=== PATIENT | male | born 1980 | race Two or more races ===

== ENCOUNTER 2020-02-21 15:25 | Emergency (ER) | payer OTHER ==
[~2020-02-21] VITALS: Ht 182.9 cm; Wt 90.7 kg
[2020-02-21] MEDS ORDERED: ACETAMINOPHEN-1 EAC1 ORAL (15:30)
[2020-02-21] MEDS ORDERED: NAPROXEN500 M1 ORAL (15:30)
--- NOTE | 2020-02-21 15:31 | Emergency Room Report ---
History of Present Illness General Chief Complaint: To Be Triaged Source: Patient Present Illness HPI Patient is a [id number] 39-year-old male who presents status post mechanical trip and fall yesterday. He has a video of him following which I have reviewed. Patient slipped, rolled his right ankle, and braced his fall by putting his bilateral wrist behind him. Denies hyperextension of elbows or knees. He was able to finish out the rest of the day of work. Denies head trauma, headache, weakness, neck pain, loss of consciousness, visual blurring, numbness , paresthesia, or any other symptoms. Of note, patient states he went to an urgent care this morning as he was leaving , a disgruntled patient. Slammed the door onto his right hand. He is complaining of pain on the lateral aspect of his right hand at digits 3, 4 , 5. He is also complaining of pain at the base of the thumb on the left wrist. He is complaining of pain to the lateral aspect of the right ankle and the base of the pinky toe. He is able to ambulate. Also complains of paraspinal right low back pain.Denies urinary retention, bowel bladder incontinence, fever, chills, history of IV drug use. Denies blood thinner use. Hand dominance: Right hand Occupation: [employer] The patient's symptoms were gradual onset, severity was moderate, duration since 1 day. Quality: aching Past medical history: HTN Past surgical history: back surgery Smoking: Denies Alcohol use: Denies Drug use: Denies Review of systems: CONST: No fevers or chills, No night sweats PULMONARY: No productive cough, No shortness of breath CARDIAC: No chest pain, No palpitations GI: No vomiting, No diarrhea , No melena_or_BRBPR : No dysuria, No hematuria, No discharge NEURO: No new_focal_weakness_or_numbness, No confusion, No vision changes 14 point Review of Systems is otherwise negative except per HPI Physical Exam: GENERAL: Awake_alert_ nontoxic, no acute distress Spo2 98% on RA -normal EYES: Extraocular muscles are intact. Conjunctivae clear. Lids without swelling ENT: External nose and ear normal_in_appearance. Oropharynx clear. Head_ atraumatic, Moist_oral_mucosa NECK: No JVD. No meningismus. No thyromegaly. Supple. Trachea midline RESP: Normal respiratory effort. Symmetric rise. No stridor. Clear_to_ auscultation_No_rales_No_wheezes CARDIAC: Regular rate and regular rhytm. No_significant pedal edema. ABDOMEN: Soft. Nondistended. Nontender_No_rebound_or_guarding. MSK: Normal muscle tone, without rigidity. Extremities without asymmetric deformity or swelling. R wrist no snuffbox TTP; no scissoring of digits. Intact AIN PIN MEDIAN RADIAL ULNAR N. SILT, CR < 2 sec + L wrist snuffbox TTP; no scissoring of digits. Intact AIN PIN MEDIAN RADIAL ULNAR N. SILT, CR < 2 sec Compartments of bilateral hand wrist and forearm are soft and compressible. Midline Lumbar surgery scar is well healed. no cellulilitis or midline TTP or step off. R paraspinal Lumbar hypertonicity FROM C/T/L spine flex/extension Upper extremity exam: Bilateral Elbow: No swelling / effusion appreciated, no significant pain with passive range of motion Wrist: No swelling / effusion appreciated, no significant pain with passive range of motion Lateral epicondyle: no tenderness / swelling / ecchymoses Medial epicondyle: no tenderness / swelling / ecchymoses Radial pulse: 2+ Capillary refill: <3 seconds in all fingers All fingers: full range of motion without any tenderness / swelling / deformity / evidence of infection Scaphoid: + L TTP; NO R snuffbox TTP. Radian / Median / Ulnar nerves: all intact (finger opposition, finger adduction / abduction, thumb dorsiflexion) Sensation intact to light touch: in all fingers Strength 5/5 with: wrist dorsi / volar flexion, hand weather observer, elbow flexion / extension Right ankle/foot exam No swelling / effusion appreciated, No significant pain with passive range of motion Lateral malleolus: no tenderness / swelling / ecchymoses Medial malleolus: no tenderness / swelling / ecchymoses Dorsalis pedis pulse: 2+ Capillary refill: <3 seconds in all toes All toes: full range of motion without any tenderness / swelling / deformity / evidence of infection Base of the fifth metatarsal: no tenderness / swelling / ecchymoses Navicular: no tenderness / swelling / ecchymoses Calcaneus: no tenderness / swelling / ecchymoses Arch of the foot: no tenderness / swelling / ecchymoses Midfoot: no tenderness / swelling / ecchymoses Strength of dorsal / plantar flexion: normal 5/5 SKIN: Warm and dry. No visible cyanosis or pallor NEUROLOGIC: Alert, oriented x3. Motor_and_sensation_grossly_intact. No truncal ataxia. Gait_normal Psych: Normal mood and affect, normal judgment and insight - COORDINATION OF CARE Case was discussed with: Patient Any imaging ordered were interpreted as part of the medical decision making: Medical Decision Making/Plan: Differential diagnosis includes musculoskeletal pain, fracture, dislocation, compartment syndrome, arterial occlusion, nerve damage, among others. Initial pulse ox in triage was entered erroneously. Repeat pulse ox showed SPO2 98%. Patient is not dyspneic or any respiratory distress. He does not complain of any shortness of breath. Distally the patient has capillary refill <2 seconds and strong pulses to RUE/ LUE and RLE/LLE. There is no pallor or pain out of proportion to exam. There is no significant swelling, deformity, or report of significant dislocation that subsequently reduced. No evidence of arterial occlusion or injury. The associated joints have full range of motion without any significant pain or restriction in mobility. No evidence at this time of major ligamentous disruption. Xrays of the R hand shows 4th MCP fx. No scissoring on exam. Compartments are soft. No neurologic deficits. Radial pulse +2/4 BUE. Advised NWB R hand until cleared by ortho. Xray of the L wrist are negative. L wrist had snuffbox TTP so L thumb spica splint applied. Advised NWB L thumb x 1 week until repeat xrays. Xray of the R ankle and foot were negative. AMILCAR wrap applied. Advised WBAT. However, the patient was informed that occult fractures are not always apparent on their first visit and understand to follow up with their regular doctor for a reevaluation within the next 2-3 days, to ensure their symptoms completely resolve. Advised to f/u for repeat xrays within 7-10 days to eval for scaphoid fx. Recommend f/u ortho in 2-3 days. Pt educated if he does not follow up in a timely matter he risks avascular necrosis of scaphoid and therefore lifelong arthritis. He verbalizes his understanding of this Pertinent results reviewed with the patient. I educated the patient on the current treatment plan including the risks, benefits, and alternatives. I also discussed the extent and limitations of the current evaluation. The patient expressed understanding and agreement with plan. I recommended PMD follow-up within 1-2 days. Also advised that the patient return to the Emergency Department as soon as possible if they experience any new, persistent, or worsening symptoms. Patient was advised to not take Tylenol [address]/operate heavy machinery as it is potentially sedating. He verbalizes his understanding of this. Allergies: Coded Allergies: No Known Allergies (Unverified , 02/21/20) Physical Exam Sp02 EP Interpretation: reviewed, normal Procedures Splinting Progress Velcro Left thumb spica splint: splint applied to left thumb Splint applied by tech with direct supervision by me. Reassessed following splint application. Neurovascular intact. Compartments remain soft and compressible. Pt tolerated well without complications. Splint care instructions were discussed. 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 Right ulnar gutter splint: splint applied to right hand Splint applied by tech with direct supervision by me. Reassessed following splint application. Neurovascular intact. Compartments remain soft and compressible. Pt tolerated well without complications. Splint care instructions were discussed. 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 Right ankle Amilcar wrap splint: splint applied to right ankle Splint applied by tech with direct supervision by me. Reassessed following splint application. Neurovascular intact. Compartments remain soft and compressible. Pt tolerated well without complications. Splint care instructions were discussed. Pt to follow up with orthopedics within 1 week to prevent future arthritis and longterm disability. Medical Decision Making Diagnostic Impression: Primary Impression: Fracture of fourth metacarpal bone of right hand Additional Impressions: Contusion of bone Muscle spasm Right ankle pain Right hand pain Wrist pain Other X-Ray Diagnostic Results Other X-Ray Diagnostic Results : PA Scribe Text XRAY Foot Complete R EXAM: XR Right Foot Complete, 3 or More Views Indication: PAIN FINDINGS: Bones/joints: Mild to moderate osteoarthritic changes at the DIP and PIP joints. No acute fracture, dislocation, or destructive process. Soft tissues: No radiopaque foreign body. IMPRESSION: 1. Mild osteoarthritic changes. 2. No acute fracture or dislocation. XRAY Ankle Compl Min 3v R EXAM: XR Right Ankle Complete, 3 or More Views Indication: Pain TECHNIQUE: Frontal, lateral and oblique views of the right ankle. FINDINGS: Bones/joints: Right ankle mortise is preserved. No acute fracture, dislocation, or destructive process. The calcaneus is unremarkable. The talus is unremarkable. Base of the right fifth metatarsal is unremarkable. Soft tissues: Unremarkable. IMPRESSION: No acute fracture, dislocation, or destructive process is noted. XRAY Hand Complete R EXAM: XR Right Hand Complete, 3 or More Views Frontal, lateral and oblique views of the right hand. FINDINGS: Bones/joints: There is suggestion of a fracture at the base of the right fourth metacarpal of indeterminate age. Clinical correlation is advised. No dislocation. Soft tissues: Anatomic alignment is normal. Soft tissues are unremarkable. No additional focal abnormalities noted. No radiopaque foreign body. IMPRESSION: 1. R fourth metacarpal fx, no dislocation, mild STS XRAY [facility] EXAM: XR Lumbosacral Spine, 2 or 3 Views COMPARISON: No previous studies. FINDINGS: Vertebrae: There is grade 1 anterolisthesis of L5 upon S1 vertebral body appeared In particular, the L5 vertebral body is displaced 1 cm anterior to the L5 vertebral body. Alignment of the lumbar spine is unremarkable per Pedicles are unremarkable. Levoscoliosis. No acute fracture. Sacrum/coccyx: Lower thoracic spine and the upper and mid sacrum are unremarkable. Mild osteoarthritic changes about the sacroiliac joints. No acute fracture. Disc spaces: Posterior fusion changes are noted at the L5-S1 level. Intervertebral disc spacer at L5-S1 level. Soft tissues: Unremarkable. Other findings: Orthopedic plate and screws are noted in place per IMPRESSION: 1. Posterior fusion changes at the L5-S1 level. 2. Grade 1 anterolisthesis of L5 upon S1 vertebral body. 3. Intervertebral disc spacer at L5-S1 level. XRAY Wrist Complete R EXAM: XR Right Wrist, 2 Views CLINICAL HISTORY: PAIN TECHNIQUE: Frontal and lateral views of the right wrist. FINDINGS: Bones/joints: Mild osteoarthritic changes are noted. No acute fracture, dislocation, or destructive process is noted. Soft tissues: Soft tissues are unremarkable. No radiopaque foreign body. IMPRESSION: No acute fracture, dislocation, or destructive process. XRAY Wrist Complete L EXAM: XR Left Wrist, 2 Views COMPARISON: None. FINDINGS: Bones/joints: No acute fracture, dislocation, or destructive process. Soft tissues: Soft tissues are unremarkable per No radiopaque foreign body. Other findings: No significant focal abnormalities. IMPRESSION: No acute fracture, dislocation, or destructive process. Disposition: HOME, SELF-CARE Admit Decision Time: 16:00 Condition: Stable Scripts Methocarbamol* (ROBAXIN-750*) 750 Mg Tablet 750 MG PO TID, #21 TAB 0 Refills Prov: Leida Coello D.O. 02/21/20 Acetaminophen With Codeine (T#3) (TYLENOL #3 TAB*) Y Tab 1 TAB ORAL Q4H PRN for For Pain for 7 Days, #20 TAB Prov: Leida Coello D.O. 02/21/20 Naproxen* (NAPROXEN*) 500 Mg Tablet.dr 500 MG ORAL TWICE A DAY for 14 Days, #28 TAB Prov: Leida Coello D.O. 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 There is a questionable fracture of your left wrist. You will need to get repeat x-rays with your primary care doctor of your left wrist to rule out fracture. In the meantime please keep your left thumb spica splint intact. Do not remove or weight-bear to the left upper extremity until cleared by physician. Do not drive or operate heavy machinery while taking Tylenol #3 as it is sedating. Follow-up with your doctor sooner if your condition requires a more timely clinical reevaluation. Return to the emergency department immediately if you feel that your condition is worsening or if you have any new or concerning symptoms. Review your discharge instructions and take any prescriptions given as instructed. Since there is always the possibility of X-ray variance, you should get a copy of the final report of your imaging studies from medical records in 2-3 days in case of discrepancy, or you can have your regular doctor obtain these from the hospital. Hairline fractures or occult fractures can also be missed on the first visit so if you are having persistent pain and persistent decreased function after 1 week you should return for repeat evaluation and potentially repeat imaging. Leida Coello D.O. Feb 21, 2020 15:31
[2020-02-21 15:35] VITALS: BP 139/97
--- NOTE | 2020-02-21 15:35 | NUR ---
ED Nurse Note: Patient walked into ED for c/o pain in multiple locations s/p fall yesterday. Patient fell back on his hands causing pain to bilat hands with mild swelling. Patient also has pain to R ankle. Today, pt went to a clinic for evaluation and another patient jammed his R hand in the door unintentionally. Patient is able to ambulate with steady gait. CMS intact on bilat hands and R foot. Patient is aaox4, breathing is normal and unlabored.
[2020-02-21] MEDS ORDERED: Methocarbamol 750mg tab ORAL ONE (15:45)
[2020-02-21] MEDS ORDERED: Ketorolac 30mg Inj IM ONE (15:45)
[2020-02-21] MEDS ORDERED: ROBAXIN-750750 MG PO (15:57)
--- NOTE | 2020-02-21 17:30 | Diagnostic Imaging Report ---
EXAM: XR Right Foot Complete, 3 or More Views CLINICAL HISTORY: PAIN TECHNIQUE: Frontal, lateral and oblique views of the right foot. COMPARISON: None. FINDINGS: Bones/joints: Mild to moderate osteoarthritic changes at the DIP and PIP joints. No acute fracture, dislocation, or destructive process. Soft tissues: Possible soft tissue swelling about the distal phalanx of the right great toe. No radiopaque foreign body. IMPRESSION: 1. Mild osteoarthritic changes. 2. No acute fracture or dislocation. 3. Possible soft tissue swelling about the distal phalanx of right great toe. Clinical correlation is advised. 4. If there is concern for osteomyelitis or cellulitis, magnetic resonance imaging should be performed.
--- NOTE | 2020-02-21 17:30 | NUR ---
ED Nurse Note: Patient placed in splints on both R and L hand/arm. Patient also had brendan wrap applied to R ankle by tech.
--- NOTE | 2020-02-21 17:31 | Diagnostic Imaging Report ---
EXAM: XR Right Ankle Complete, 3 or More Views CLINICAL HISTORY: Right ankle pain. TECHNIQUE: Frontal, lateral and oblique views of the right ankle. COMPARISON: None. FINDINGS: Bones/joints: Right ankle mortise is preserved. No acute fracture, dislocation, or destructive process. The calcaneus is unremarkable. The talus is unremarkable. Base of the right fifth metatarsal is unremarkable. Soft tissues: Unremarkable. IMPRESSION: No acute fracture, dislocation, or destructive process is noted.
--- NOTE | 2020-02-21 17:32 | Diagnostic Imaging Report ---
EXAM: XR Left Wrist, 2 Views CLINICAL HISTORY: PAIN TECHNIQUE: Frontal and lateral views of the left wrist. COMPARISON: None. FINDINGS: Bones/joints: No acute fracture, dislocation, or destructive process. Soft tissues: Soft tissues are unremarkable per No radiopaque foreign body. Other findings: No significant focal abnormalities. IMPRESSION: No acute fracture, dislocation, or destructive process.
--- NOTE | 2020-02-21 17:33 | Diagnostic Imaging Report ---
EXAM: XR Right Wrist, 2 Views CLINICAL HISTORY: PAIN TECHNIQUE: Frontal and lateral views of the right wrist. COMPARISON: None. FINDINGS: Bones/joints: Mild osteoarthritic changes are noted. No acute fracture, dislocation, or destructive process is noted. Soft tissues: Soft tissues are unremarkable. No radiopaque foreign body. IMPRESSION: No acute fracture, dislocation, or destructive process.
--- NOTE | 2020-02-21 17:34 | Diagnostic Imaging Report ---
EXAM: XR Right Hand Complete, 3 or More Views CLINICAL HISTORY: PAIN TECHNIQUE: Frontal, lateral and oblique views of the right hand. COMPARISON: None. FINDINGS: Bones/joints: There is suggestion of a fracture at the base of the right fourth metacarpal of indeterminate age. Clinical correlation is advised. No dislocation. Soft tissues: Anatomic alignment is normal. Soft tissues are unremarkable. No additional focal abnormalities noted. No radiopaque foreign body. IMPRESSION: 1. There is suggestion of a fracture at the base of the right fourth metacarpal of indeterminate age best seen on the oblique projection. 2. This fractures of uncertain age and could be old. Clinical correlation is advised to exclude acute fracture however.
--- NOTE | 2020-02-21 17:36 | Diagnostic Imaging Report ---
EXAM: XR Lumbosacral Spine, 2 or 3 Views CLINICAL HISTORY: PAIN TECHNIQUE: Frontal and lateral views of the lumbar spine and sacrum. COMPARISON: No previous studies. FINDINGS: Vertebrae: There is grade 1 anterolisthesis of L5 upon S1 vertebral body appeared In particular, the L5 vertebral body is displaced 1 cm anterior to the L5 vertebral body. Alignment of the lumbar spine is unremarkable per Pedicles are unremarkable. Levoscoliosis. No acute fracture. Sacrum/coccyx: Lower thoracic spine and the upper and mid sacrum are unremarkable. Mild osteoarthritic changes about the sacroiliac joints. No acute fracture. Disc spaces: Posterior fusion changes are noted at the L5-S1 level. Intervertebral disc spacer at L5-S1 level. Soft tissues: Unremarkable. Other findings: Orthopedic plate and screws are noted in place per IMPRESSION: 1. Posterior fusion changes at the L5-S1 level. 2. Grade 1 anterolisthesis of L5 upon S1 vertebral body. 3. Intervertebral disc spacer at L5-S1 level.
[2020-02-21 18:00] VITALS: BP 130/93
--- NOTE | 2020-02-21 18:00 | NUR ---
ER DISCHARGE NOTE: Patient is cleared to be discharged per ERMD, pt is aox4, on room air, with stable vital signs. pt was given dc and prescription instructions, pt was able to verbalize understanding, pt id band removed. pt is able to ambulate with steady gait. pt took all belongings.
== END 2020-02-21 18:00 | disposition home or self-care (01) ==
LOC: EMR 15:30
DX: S62.344A Nondisplaced fracture of base of fourth metacarpal bone, right hand, initial encounter for closed fracture (principal); I10 Essential (primary) hypertension; W01.0XXA Fall on same level from slipping, tripping and stumbling without subsequent striking against object, initial encounter; Y92.9 Unspecified place or not applicable; M25.542 Pain in joints of left hand; M25.571 Pain in right ankle and joints of right foot; M54.5 Low back pain; T14.8XXA Other injury of unspecified body region, initial encounter; M62.838 Other muscle spasm; M43.17 Spondylolisthesis, lumbosacral region; M19.031 Primary osteoarthritis, right wrist; M19.071 Primary osteoarthritis, right ankle and foot
CPT/HCPCS: 29125; 72020; 73110; 73130; 73610; 73630; 96372; 99284; J1885